=== PATIENT | male | born 1945 | race Hispanic/Latino ===

== ENCOUNTER 2018-10-22 11:14 | Outpatient (CLI) | payer MEDICARE, OTHER ==
--- NOTE | 2018-10-22 11:50 | XRay Report ---
CHEST 2 VIEWS INDICATION: COUGH. COMPARISON: 04/23/2016 FINDINGS: Support devices: None. Heart: Within normal limits. Pulmonary vasculature: Normal. Lungs/pleura: Very mild left basal subsegmental atelectasis. No airspace disease or pleural effusion. No pneumothorax. Additional findings: Elevation of the diaphragm. Degenerative change in the spine. IMPRESSION: 1. Mild left basal subsegmental atelectasis. 2. No CHF or pneumonia. Signer Name: Anival Muir MD Signed: 10/22/2018 11:45 AM Workstation Name: [id number]
== END 2018-10-22 11:15 | disposition home or self-care (01) ==
LOC: SPVIMAG 11:14
PROVIDERS: ATTEND Internal Medicine
DX: J98.11 Atelectasis (principal)
CPT/HCPCS: 71046

== ENCOUNTER 2020-11-10 15:00 | Outpatient (CLI) | payer MEDICARE, OTHER ==
--- NOTE | 2020-11-10 16:19 | XRay Report ---
CHEST 2 VIEWS INDICATION / CLINICAL INFORMATION: BRONCHITIS J40. COMPARISON: 10/22/18. FINDINGS: SUPPORT DEVICES: None. HEART / MEDIASTINUM: The heart size and pulmonary vasculature are normal. LUNGS / PLEURA: No significant pulmonary or pleural abnormality. Mild patchy subsegmental parenchymal disease in both mid to lower lung zones has cleared.. No pneumothorax. ADDITIONAL FINDINGS: No significant additional findings. IMPRESSION: No acute findings. Signer Name: Quang Gimenez MD Signed: 11/10/2020 4:14 PM Workstation Name: [id number]
== END 2020-11-10 15:01 | disposition home or self-care (01) ==
LOC: SPVIMAG 15:00
PROVIDERS: ATTEND Internal Medicine
DX: J40 Bronchitis, not specified as acute or chronic (principal)
CPT/HCPCS: 71046